=== PATIENT | female | born 1945 | race Caucasian/White ===

== ENCOUNTER 2016-11-20 12:14 | Emergency (ER) | payer OTHER ==
[~2016-11-20] VITALS: Ht 165.1 cm; Wt 72.6 kg
--- NOTE | ~2016-11-20 | EKG ---
[place] [address] [facility] [place] [employer] [address] ELECTROCARDIOGRAM REPORT Name: ES WHITMORE Room #: DEP [facility]#: [id number] Admission: 11/20/16 Attend Phys: Discharge: 11/20/16 Date of : 47 Report #: [id number] THIS REPORT FOR: //name// [facility] ED Test Date: 2016-11-20 Test Time: 12:43:19 Pat Name: ES WHITMORE Department: Room: Gender: F Power Generation Engineer: VALERIANO : 1945 Requested By: Mai Bartholomew Order Number: [id number] MD: Juan Asher Measurements Intervals [place] Rate: 55 P: 85 AK: 136 QRS: 29 QRSD: 92 T: 76 QT: 440 QTc: 421 Interpretive Statements Sinus rhythm Ventricular premature complex Consider left ventricular hypertrophy Compared to ECG 01/01/2012 20:14:36 Ventricular premature complex(es) now present Electronically Signed On 11-20-2016 16:00:22 CDT by Juan Asher [email or web address] <ELECTRONICALLY SIGNED> By: Juan Asher MD 11/20/16 1600 1243 1243 Juan Asher MD /MAR
[~2016-11-20 12:14] MED LIST: ABILIFY; DIPHENHIST50 MG PO; IBUPROFEN 600600 M1 PO; LEXAPRO20 MG PO; LISINOPRIL10 MG PO; LORAZEPAM 0.50.5 MG PO; LOVASTATIN 20 M20 MG PO; MEDROLDOSEPACK PO; NORCO 5-325 TA1 EACH PO; PREDNISONE 10 M10 MG PO; PRISTIQ50 MG PO; VYTORIN 10-201 EACH PO; ZANTAC 150MG T150 MG PO; ZYRTEC10 M2 PO; [UNRECOGNIZED DRUG - REMARK]
[2016-11-20 13:04] LABS: ABSOLUTE NEUTROPHILS 2.7 thou/uL (1.4-8.2); BASOPHILS 0.9 % (0.0-2.0); EOSINOPHILS 0.3 % (0.0-3.0); HEMATOCRIT 37.4 % (37.0-47.0); HEMOGLOBIN 12.4 gm/dL (12.0-15.0); LYMPHOCYTES 20.8 % (24.0-44.0); MCH 26.1 pg (26.0-34.0); MCHC 33.1 g/dL (28.0-37.0); MCV 78.9 fL (80.0-100.0); MONOCYTES 10.4 % (1.0-8.0); PLATELET COUNT 206 thou/uL (150-400); POLYS 67.6 % (36.0-66.0); RBC 4.74 mil/uL (4.20-5.00); RDW 15.7 % (10.5-14.5)
[2016-11-20 13:06] LABS: MANUAL DIFF NO
[2016-11-20 13:14] LABS: ANION GAP 12 mmol/L (7-16); BUN 14 mg/dL (7-18); CALCIUM 9.2 mg/dL (8.5-10.1); CHLORIDE 101 mmol/L (98-107); CO2 24 mmol/L (21-32); CREATININE 0.8 mg/dL (0.6-1.0); GLUCOSE 107 mg/dL (74-106); POTASSIUM 3.8 mmol/L (3.5-5.1); SODIUM 137 mmol/L (136-145)
[2016-11-20 13:20] LABS: ALBUMIN 3.6 g/dL (3.4-5.0); ALKALINE PHOSPHATASE 103 U/L (46-116); SGOT 24 U/L (15-37); SGPT 16 U/L (30-65); TOTAL BILIRUBIN 0.3 mg/dL (<0.1-1.0); TOTAL PROTEIN 7.1 g/dL (6.4-8.2); TROPONIN-I < 0.04 ng/mL (<0.04-0.07)
[2016-11-20 13:47] LABS: URINE BILIRUBIN NEGATIVE (Negative); URINE BLOOD NEGATIVE (Negative); URINE COLOR YELLOW; URINE GLUCOSE-RANDOM* NEGATIVE (Negative); URINE KETONES TRACE (Negative); URINE NITRITE NEGATIVE (Negative); URINE PROTEIN (DIPSTICK) NEGATIVE (Negative); URINE UROBILINOGEN 0.2 E.U./dl (0.2-1.0)
[2016-11-20] MEDS ORDERED: PHENERGAN 25 MG25 M1 PO (14:39)
[2016-11-20 15:04] VITALS: BP 168/68
== END 2016-11-20 15:06 | disposition home or self-care (01) ==
LOC: ER 12:14
PROVIDERS: Physician Assistant
DX: L29.9 Pruritus, unspecified (principal); F32.9 Major depressive disorder, single episode, unspecified; R11.0 Nausea; E86.9 Volume depletion, unspecified; E78.5 Hyperlipidemia, unspecified; I10 Essential (primary) hypertension; F17.210 Nicotine dependence, cigarettes, uncomplicated